=== PATIENT | male | born 1970 | race Hispanic/Latino ===

== ENCOUNTER 2019-11-27 08:49 | Emergency (ER) | payer SELFPAY ==
[~2019-11-27] VITALS: Ht 172.7 cm; Wt 99.8 kg
[2019-11-27] MEDS ORDERED: ONDANSETRON ODT4 MG PO (09:25)
[2019-11-27] MEDS ORDERED: TYLENOL EXTRA500 MG PO (09:26)
[2019-11-27] MEDS ORDERED: VISTARIL25 MG PO (09:26)
[2019-11-27] MEDS ORDERED: IBU400 MG PO (09:27)
[2019-11-27] MEDS ORDERED: VITAMIN B-1100 M1 PO (09:27)
[2019-11-27] MEDS ORDERED: MULTIVITAMINS1 EAC7 PO (09:27)
[2019-11-27] MEDS ORDERED: COLACE100 MG PO (09:28)
[2019-11-27] MEDS ORDERED: MELATONIN3 M3 PO (09:28)
[2019-11-27] MEDS ORDERED: FOLIC ACID1 MG PO (09:28)
[2019-11-27] MEDS ORDERED: TRAZODONE HCL100 MG PO (09:29)
[2019-11-27] MEDS ORDERED: CHLORDIAZEPOXID25 MG PO (09:29)
[2019-11-27] MEDS ORDERED: OMEPRAZOLE20 MG PO (10:40)
[2019-11-27] MEDS ORDERED: NORCO 7.5-3251 EACH PO (10:40)
== END 2019-11-27 11:10 | disposition home or self-care (01) ==
LOC: ED 08:49
DX: K85.20 Alcohol induced acute pancreatitis without necrosis or infection (principal); K29.20 Alcoholic gastritis without bleeding; Z79.899 Other long term (current) drug therapy
CPT/HCPCS: 80053; 83690; 85025; 96361; 96374; 96375; 99284-25; C9113; J1170; J2405; J7030